=== PATIENT | male | born 1980 | race African-American/Black ===

== ENCOUNTER 2023-12-28 11:16 | Emergency (ER) | payer MEDICARE | END 2023-12-28 12:15 | disposition home or self-care (01) | LOC: NAV ERS 11:16 | DX: R03.1 Nonspecific low blood-pressure reading (principal); F17.210 Nicotine dependence, cigarettes, uncomplicated | CPT/HCPCS: 99284 ==

== ENCOUNTER 2024-01-07 22:14 | Emergency (ER) | payer MEDICARE, SELFPAY | END 2024-01-07 22:45 | disposition home or self-care (01) | LOC: NAV ERS 22:14 | DX: F25.9 Schizoaffective disorder, unspecified (principal); F17.210 Nicotine dependence, cigarettes, uncomplicated | CPT/HCPCS: 99284 ==

== ENCOUNTER 2024-01-08 23:00 | Emergency (ER) | payer SELFPAY | END 2024-01-09 00:15 | disposition home or self-care (01) | LOC: NAV ERS 23:00 | DX: F25.9 Schizoaffective disorder, unspecified (principal); F17.210 Nicotine dependence, cigarettes, uncomplicated | CPT/HCPCS: 99283 ==

== ENCOUNTER 2024-01-09 21:41 | Emergency (ER) | payer SELFPAY | END 2024-01-09 22:22 | disposition home or self-care (01) | LOC: NAV ERS 21:41 | DX: F25.9 Schizoaffective disorder, unspecified (principal); F17.210 Nicotine dependence, cigarettes, uncomplicated | CPT/HCPCS: 99283 ==

== ENCOUNTER 2024-01-10 21:03 | Emergency (ER) | payer MEDICARE, SELFPAY | END 2024-01-10 22:15 | disposition home or self-care (01) | LOC: NAV ERS 21:03 | DX: T16.2XXA Foreign body in left ear, initial encounter (principal); H61.22 Impacted cerumen, left ear; F17.210 Nicotine dependence, cigarettes, uncomplicated | CPT/HCPCS: 99282 ==

== ENCOUNTER 2024-01-11 07:26 | Emergency (ER) | payer MEDICARE | END 2024-01-11 07:49 | disposition home or self-care (01) | LOC: NAV ERS 07:26 | DX: T16.2XXA Foreign body in left ear, initial encounter (principal); F25.9 Schizoaffective disorder, unspecified; F17.210 Nicotine dependence, cigarettes, uncomplicated | CPT/HCPCS: 99282 ==

== ENCOUNTER 2024-01-11 22:15 | Emergency (ER) | payer MEDICARE ==
[2024-01-11] MEDS ORDERED: Albuterol 200 PUFF (6.7GM INHALER) ONE (22:42)
== END 2024-01-11 22:46 | disposition home or self-care (01) ==
LOC: NAV ERS 22:15
DX: J45.901 Unspecified asthma with (acute) exacerbation (principal); Z55.6 Problems related to health literacy; F17.210 Nicotine dependence, cigarettes, uncomplicated

== ENCOUNTER 2024-01-12 16:05 | Emergency (ER) | payer MEDICARE | END 2024-01-12 16:55 | disposition home or self-care (01) | LOC: NAV ERS 16:05 | DX: R20.2 Paresthesia of skin (principal); R20.0 Anesthesia of skin; F17.210 Nicotine dependence, cigarettes, uncomplicated | CPT/HCPCS: 99283 ==

== ENCOUNTER 2024-07-28 22:23 | Emergency (ER) | payer MEDICARE | END 2024-07-28 22:43 | disposition home or self-care (01) | LOC: NAV ERS 22:23 | DX: Z00.00 Encounter for general adult medical examination without abnormal findings (principal) | CPT/HCPCS: 99281 ==